=== PATIENT | female | born 1995 | race Caucasian/White ===

== ENCOUNTER 2017-04-15 04:00 | Emergency (ER) | payer MEDICAID ==
[~2017-04-15 04:00] MED LIST: MOTRIN-DPS800 MG PO; NIPPLECREAM TP; PRENATAL VIT1 TAB PO; PROVENTIL2.5 MG/0.5 IH; TYLENOL #3 DPS1 TAB PO
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
== END 2017-04-15 06:07 | disposition home or self-care (01) ==
LOC: ER 04:00
DX: S00.03XA Contusion of scalp, initial encounter (principal); S20.212A Contusion of left front wall of thorax, initial encounter; S63.602A Unspecified sprain of left thumb, initial encounter; Z23 Encounter for immunization; Y04.0XXA Assault by unarmed brawl or fight, initial encounter; Y92.009 Unspecified place in unspecified non-institutional (private) residence as the place of occurrence of the external cause